=== PATIENT | female | born 1960 | race Asian ===

== ENCOUNTER 2018-05-02 20:18 | Emergency (ER) | payer OTHER ==
[2018-05-02] MEDS: HYDROCODONE/APAP (5/325) TAB PO (21:50)
[2018-05-02] MEDS: ACETAMINOPHEN 325 MG TAB PO (22:10)
== END 2018-05-02 23:31 | disposition home or self-care (01) ==
LOC: FTE 20:18
DX: S80.11XA Contusion of right lower leg, initial encounter (principal); S90.01XA Contusion of right ankle, initial encounter; X58.XXXA Exposure to other specified factors, initial encounter; Y92.9 Unspecified place or not applicable
CPT/HCPCS: 73590; 73610-RT; 93971; 99284-25